=== PATIENT | male | born 1935 | race Caucasian/White ===

== ENCOUNTER 2017-07-26 23:10 | Inpatient (IN) | payer MEDICARE, OTHER ==
[~2017-07-26] VITALS: Ht 5703.2 cm; Wt 102.0 kg
[2017-07-26 23:45] LABS: BASOPHILS % (AUTO) 0.3 % (0-1); EOSINOPHILS # (AUTO) 0.1 X10'3 (0-0.9); EOSINOPHILS % (AUTO) 1.4 % (0-6); HEMATOCRIT 46.4 % (42.0-52.0); HEMOGLOBIN 15.5 g/dl (14.0-17.9); LYMPHOCYTES # (AUTO) 0.7 X10'3 (1.1-4.8); LYMPHOCYTES % (AUTO) 10.3 % (21-51); MEAN CORPUSCULAR HEMOGLOBIN 28.4 PG (27.0-31.0); MEAN CORPUSCULAR HGB CONC 33.5 % (33.0-36.5); MEAN PLATELET VOLUME 8.2 FL (7.4-10.4); MONOCYTES # (AUTO) 0.5 X10'3 (0-0.9); NEUTROPHILS # (AUTO) 5.6 X10'3 (1.8-7.7); PLATELET COUNT 174 X10'3 (140-440); RED BLOOD COUNT 5.46 X10'6 (4.70-6.10); RED CELL DISTRIBUTION WIDTH 17.8 % (11.5-14.5); WHITE BLOOD COUNT 6.9 X10'3 (4.5-11.0)
[2017-07-27 00:09] LABS: ALANINE AMINOTRANSFERASE 18 U/L (12-78); ALBUMIN 3.4 G/DL (3.4-5.0); ALBUMIN/GLOBULIN RATIO 0.9 (1.1-1.5); ALKALINE PHOSPHATASE 115 IU/L (46-116); ANION GAP 8 (8-16); ASPARTATE AMINO TRANSFERASE 23 U/L (10-37); BILIRUBIN,TOTAL 2.2 MG/DL (0.1-1.0); BLOOD UREA NITROGEN 30 MG/DL (7-18); BUN/CREATININE RATIO 24.4 (5.4-32.0); CALCIUM 8.7 MG/DL (8.5-10.1); CHLORIDE 108 MMOL/L (99-107); CREATININE 1.23 MG/DL (0.60-1.10); ETHANOL < 0.010 GM/DL (0.0-0.010); GLUCOSE 132 MG/DL (70-104); MAGNESIUM 2.2 MG/DL (1.5-2.4); POTASSIUM 4.3 MMOL/L (3.5-5.1); SODIUM 145 MMOL/L (135-145); TOTAL CARBON DIOXIDE 28.6 MMOL/L (24-32); eGFR 57 ML/MIN
[2017-07-27 00:10] LABS: INR 1.3 INR; PARTIAL THROMBOPLASTIN TIME 27 SECONDS (22-32)
[2017-07-27 00:19] LABS: ACETAMINOPHEN < 2.0 UG/ML (10-30)
[2017-07-27] MEDS ORDERED: acetaminophen 325mg tablet PO PRN (04:40)
[2017-07-27] MEDS ORDERED: ondansetron/PF 4mg/2ml inj IV PRN (04:40)
[2017-07-27] MEDS ORDERED: potassium Cl 40MEQ/NS 500ml 500 ML IV PRN ×2 (04:40)
[2017-07-27] MEDS ORDERED: potassium Cl 20 mEq SR tablet PO PRN ×2 (04:40)
[2017-07-27] MEDS ORDERED: mag hydrox/Alum hydrox/simeth 30ml oral suspension PO PRN (04:40)
[2017-07-27] MEDS ORDERED: magnesium hydroxide 30ml (MOM) UD suspension PO PRN (04:40)
[2017-07-27 05:16] LABS: CHOL/HDL RATIO 3.5 (0.00-4.99); CHOLESTEROL 121 MG/DL (0-200); HDL CHOLESTEROL 35 MG/DL (35-60); LDL CHOLESTEROL 74 MG/DL (50-100); TRIGLYCERIDES 57 MG/DL (20-135)
[2017-07-27 05:42] LABS: HEMOGLOBIN A1C 6.6 % (4.5-6.2)
[2017-07-27] MEDS: heparin, porcine 5000 units/ml vial SQ SCH ×2 (08:00→20:00)
[2017-07-27] MEDS ORDERED: furosemide 10 MG/1 ML 10ml inj IV SCH (08:00)
[2017-07-27] MEDS: carVEDilol 3.125mg tablet PO SCH ×2 (08:00→21:19)
[2017-07-27] MEDS ORDERED: lisinopril 10 MG tablet PO SCH (08:00)
[2017-07-27] MEDS: K and/or MAG REPLACEMENT MC SCH (08:00)
[2017-07-27] MEDS: aspirin 81mg tablet.DR PO SCH (08:00)
[2017-07-27] MEDS ORDERED: levoFLOXACIN-Levaquin 750MG/D5 150 ML IV SCH (08:10)
[2017-07-27] MEDS ORDERED: furosemide 10 MG/1 ML 10ml inj IV ONE (16:55)
[2017-07-27] MEDS ORDERED: lisinopril 5mg tablet PO SCH (19:42)
[2017-07-27 20:00] VITALS: BP 129/80
[2017-07-27] MEDS: lactobacillus rhamnosus 10,000 MMU CELLS/CAPSULE PO SCH (21:19)
[2017-07-27 22:03] LABS: CLARITY,URINE CLEAR (Clear); GLUCOSE, URINE NEGATIVE (Neg); KETONES,URINE NEGATIVE (Neg); LEUKOCYTE ESTERASE ,URINE NEGATIVE (Neg); NITRITES, URINE NEGATIVE (Neg); OCCULT BLOOD,URINE NEGATIVE (Neg); PH,URINE 5.5 (4.8-8.0); PROTEIN,URINE TRACE mg/dl (Neg)
[2017-07-27 22:04] LABS: URINE AMPHETAMINE SCREEN NEGATIVE (Neg); URINE BARBITUATE SCREEN NEGATIVE (Neg); URINE BENZODIAZEPINES SCREEN NEGATIVE (Neg); URINE CANNABINOID SCREEN NEGATIVE (Neg); URINE COCAINE SCREEN NEGATIVE (Neg); URINE METHADONE SCREEN NEGATIVE (Neg); URINE OPIATE SCREEN NEGATIVE (Neg); URINE PHENCYCLIDINE SCREEN NEGATIVE (Neg)
[2017-07-27 22:11] LABS: COLOR,URINE DARK YELLOW (Yellow); UA COLLECTION TYPE VOIDED
[2017-07-27] MEDS ORDERED: levoFLOXACIN-Levaquin 750MG/D5 150 ML IV ONE (22:15)
[2017-07-27 22:19] LABS: BACTERIA,URINE NONE SEEN /HPF (Neg); CAL OXALATE CRYSTALS 3+ /HPF (NEGATIVE); MUCUS STRANDS FEW /LPF (Neg); RBC,URINE NONE SEEN /HPF (0-2); SQUAMOUS EPITHELIAL CELL,UR FEW /LPF (FEW); WBC,URINE 0-4 /HPF (0-4)
[2017-07-28] VITALS: BP 125/68
[2017-07-28] MEDS ORDERED: morphine 4 MG/ML inj SYRINge IV PRN (05:05)
[2017-07-28] MEDS ORDERED: HYDROcodone/acetaminophen 5mg/325mg tablet PO PRN (05:05)
[2017-07-28] MEDS: HYDROcodone/acetaminophen 10/325mg tab PO PRN ×2 (05:34→19:23)
[2017-07-28 06:00] LABS: BASOPHILS % (AUTO) 0.5 % (0-1); EOSINOPHILS # (AUTO) 0.1 X10'3 (0-0.9); EOSINOPHILS % (AUTO) 1.5 % (0-6); LYMPHOCYTES # (AUTO) 0.6 X10'3 (1.1-4.8); LYMPHOCYTES % (AUTO) 10.2 % (21-51); MEAN CORPUSCULAR HEMOGLOBIN 28.6 PG (27.0-31.0); MEAN CORPUSCULAR HGB CONC 33.4 % (33.0-36.5); MEAN CORPUSCULAR VOLUME 85.6 FL (78-98); MEAN PLATELET VOLUME 8.6 FL (7.4-10.4); MONOCYTES # (AUTO) 0.6 X10'3 (0-0.9); MONOCYTES % (AUTO) 10.3 % (2-12); NEUTROPHILS # (AUTO) 4.4 X10'3 (1.8-7.7); NEUTROPHILS % (AUTO) 77.5 % (42-75); PLATELET COUNT 143 X10'3 (140-440); RED CELL DISTRIBUTION WIDTH 17.6 % (11.5-14.5); WHITE BLOOD COUNT 5.7 X10'3 (4.5-11.0)
[2017-07-28] MEDS: heparin, porcine 5000 units/ml vial SQ SCH ×2 (06:12→20:52)
[2017-07-28 06:16] LABS: INR 1.3 INR; PARTIAL THROMBOPLASTIN TIME 28 SECONDS (22-32); PROTHROMBIN TIME 13.5 SECONDS (9.0-12.0)
[2017-07-28 06:18] LABS: ALBUMIN 2.6 G/DL (3.4-5.0); ANION GAP 9 (8-16); BLOOD UREA NITROGEN 25 MG/DL (7-18); BUN/CREATININE RATIO 26.6 (5.4-32.0); CALCIUM 8.4 MG/DL (8.5-10.1); CHLORIDE 109 MMOL/L (99-107); CREATININE 0.94 MG/DL (0.60-1.10); GLUCOSE 103 MG/DL (70-104); POTASSIUM 4.4 MMOL/L (3.5-5.1); SODIUM 146 MMOL/L (135-145); TOTAL CARBON DIOXIDE 27.8 MMOL/L (24-32); eGFR 77 ML/MIN
[2017-07-28 07:00] VITALS: BP 98/50
[2017-07-28] MEDS: aspirin 81mg tablet.DR PO SCH (07:50)
[2017-07-28] MEDS: lactobacillus rhamnosus 10,000 MMU CELLS/CAPSULE PO SCH ×2 (07:50→20:47)
[2017-07-28] MEDS: carVEDilol 3.125mg tablet PO SCH ×2 (07:54→20:48)
[2017-07-28] MEDS: furosemide 40mg/4ml inj IV SCH (07:58)
[2017-07-28] MEDS: K and/or MAG REPLACEMENT MC SCH (08:00)
[2017-07-28 11:00] VITALS: BP 123/73
[2017-07-28] MEDS ORDERED: LIDOcaine 1%/PF (10mg/ml) 5ml vial ONE (14:21)
[2017-07-28 14:45] VITALS: BP 125/70
[2017-07-28 15:01] VITALS: BP 129/91
[2017-07-28 15:51] LABS: BFSOURCE RIGHT PLEURAL FLD; PLEURAL FLUID PH 7.405 (7.63-7.65)
[2017-07-28 16:17] LABS: BF RBC COUNT 196 /CU MM; BF WBC COUNT 223 /CU MM (0-1000); BFAPPEAR CLEAR; BFCOLOR YELLOW; BFVOLUME 62 ML; LYMPHOCYTES,BODY FLUID 41 %; MONOCYTES,BODY FLUID 45 %; NEUTROPHILS,BODY FLUID 14 %
[2017-07-28 16:21] LABS: GLUCOSE,BODY FLUID 157 MG/DL; LDH,BODY FLUID 114 U/L; TOTAL PROTEIN,BODY FLUID 2.9 G/DL
[2017-07-28 18:00] VITALS: BP 136/69
[2017-07-28] MEDS: LORazepam 2 mg/ml vial IV PRN (21:41)
[2017-07-29] VITALS: BP 114/69
[2017-07-29 05:22] LABS: BASOPHILS % (AUTO) 0.4 % (0-1); EOSINOPHILS # (AUTO) 0.1 X10'3 (0-0.9); EOSINOPHILS % (AUTO) 1.5 % (0-6); HEMATOCRIT 43.2 % (42.0-52.0); HEMOGLOBIN 14.2 g/dl (14.0-17.9); LYMPHOCYTES % (AUTO) 16.4 % (21-51); MEAN CORPUSCULAR HEMOGLOBIN 28.3 PG (27.0-31.0); MEAN CORPUSCULAR HGB CONC 32.8 % (33.0-36.5); MEAN CORPUSCULAR VOLUME 86.4 FL (78-98); MEAN PLATELET VOLUME 8.5 FL (7.4-10.4); MONOCYTES # (AUTO) 0.7 X10'3 (0-0.9); MONOCYTES % (AUTO) 11.7 % (2-12); NEUTROPHILS # (AUTO) 4.4 X10'3 (1.8-7.7); PLATELET COUNT 165 X10'3 (140-440); RED CELL DISTRIBUTION WIDTH 17.9 % (11.5-14.5); WHITE BLOOD COUNT 6.3 X10'3 (4.5-11.0)
[2017-07-29 06:02] LABS: ALBUMIN 2.8 G/DL (3.4-5.0); ANION GAP 9 (8-16); BLOOD UREA NITROGEN 26 MG/DL (7-18); BUN/CREATININE RATIO 26.5 (5.4-32.0); CALCIUM 8.8 MG/DL (8.5-10.1); CHLORIDE 106 MMOL/L (99-107); CREATININE 0.98 MG/DL (0.60-1.10); GLUCOSE 129 MG/DL (70-104); POTASSIUM 4.5 MMOL/L (3.5-5.1); SODIUM 142 MMOL/L (135-145); TOTAL CARBON DIOXIDE 27.5 MMOL/L (24-32); eGFR 74 ML/MIN
[2017-07-29] MEDS: K and/or MAG REPLACEMENT MC SCH (07:52)
[2017-07-29] MEDS: lisinopril 10 MG tablet PO SCH (07:53)
[2017-07-29 08:00] VITALS: BP 112/73
[2017-07-29] MEDS ORDERED: levoFLOXACIN-Levaquin 750MG/D5 150 ML IV SCH (08:00)
[2017-07-29] MEDS: lactobacillus rhamnosus 10,000 MMU CELLS/CAPSULE PO SCH ×2 (08:03→19:49)
[2017-07-29] MEDS: carVEDilol 3.125mg tablet PO SCH ×2 (08:03→19:49)
[2017-07-29] MEDS: aspirin 81mg tablet.DR PO SCH (08:03)
[2017-07-29] MEDS: heparin, porcine 5000 units/ml vial SQ SCH ×2 (08:04→19:50)
[2017-07-29] MEDS: furosemide 40mg/4ml inj IV SCH (08:04)
[2017-07-29] MEDS: LORazepam 2 mg/ml vial IV PRN (10:03)
[2017-07-29 11:00] VITALS: BP 120/73
[2017-07-29 16:00] LABS: HIV ANTIBODY 1&2 RAPID NON-REACTIVE (Neg)
[2017-07-29 20:00] VITALS: BP 125/74
[2017-07-29] MEDS ORDERED: haloperidol 1mg tablet PO PRN (23:25)
[2017-07-29] MEDS ORDERED: haloperidol lactate 5mg/ml inj IM PRN (23:25)
[2017-07-30] VITALS: BP 125/65
[2017-07-30] MEDS: HYDROcodone/acetaminophen 10/325mg tab PO PRN (01:24)
[2017-07-30 07:07] VITALS: BP 113/58
[2017-07-30] MEDS: lactobacillus rhamnosus 10,000 MMU CELLS/CAPSULE PO SCH ×2 (08:00→20:54)
[2017-07-30] MEDS: lisinopril 10 MG tablet PO SCH (08:00)
[2017-07-30] MEDS: carVEDilol 3.125mg tablet PO SCH ×2 (08:00→20:54)
[2017-07-30] MEDS: heparin, porcine 5000 units/ml vial SQ SCH ×2 (08:00→20:54)
[2017-07-30] MEDS: K and/or MAG REPLACEMENT MC SCH (08:00)
[2017-07-30] MEDS: aspirin 81mg tablet.DR PO SCH (08:00)
[2017-07-30] MEDS: furosemide 40mg/4ml inj IV SCH (08:00)
[2017-07-30 08:17] LABS: BASOPHILS % (AUTO) 0.3 % (0-1); EOSINOPHILS # (AUTO) 0.1 X10'3 (0-0.9); EOSINOPHILS % (AUTO) 1.7 % (0-6); HEMATOCRIT 43.2 % (42.0-52.0); HEMOGLOBIN 14.1 g/dl (14.0-17.9); LYMPHOCYTES # (AUTO) 1.1 X10'3 (1.1-4.8); LYMPHOCYTES % (AUTO) 19.3 % (21-51); MEAN CORPUSCULAR HEMOGLOBIN 28.3 PG (27.0-31.0); MEAN CORPUSCULAR HGB CONC 32.6 % (33.0-36.5); MEAN CORPUSCULAR VOLUME 86.9 FL (78-98); MEAN PLATELET VOLUME 8.5 FL (7.4-10.4); MONOCYTES # (AUTO) 0.6 X10'3 (0-0.9); MONOCYTES % (AUTO) 11.2 % (2-12); NEUTROPHILS # (AUTO) 3.8 X10'3 (1.8-7.7); NEUTROPHILS % (AUTO) 67.5 % (42-75); PLATELET COUNT 151 X10'3 (140-440); RED BLOOD COUNT 4.96 X10'6 (4.70-6.10); RED CELL DISTRIBUTION WIDTH 17.5 % (11.5-14.5); WHITE BLOOD COUNT 5.6 X10'3 (4.5-11.0)
[2017-07-30 08:26] LABS: ALBUMIN 2.9 G/DL (3.4-5.0); ANION GAP 6 (8-16); BLOOD UREA NITROGEN 27 MG/DL (7-18); CALCIUM 8.7 MG/DL (8.5-10.1); CHLORIDE 104 MMOL/L (99-107); GLUCOSE 137 MG/DL (70-104); POTASSIUM 4.4 MMOL/L (3.5-5.1); SODIUM 141 MMOL/L (135-145); eGFR 72 ML/MIN
[2017-07-30 11:56] VITALS: BP 116/66
[2017-07-30 18:50] VITALS: BP 140/73
[2017-07-31 07:28] LABS: BASOPHILS % (AUTO) 0.4 % (0-1); EOSINOPHILS # (AUTO) 0.1 X10'3 (0-0.9); EOSINOPHILS % (AUTO) 1.8 % (0-6); HEMATOCRIT 42.3 % (42.0-52.0); HEMOGLOBIN 13.8 g/dl (14.0-17.9); LYMPHOCYTES % (AUTO) 18.3 % (21-51); MEAN CORPUSCULAR HEMOGLOBIN 28.4 PG (27.0-31.0); MEAN CORPUSCULAR HGB CONC 32.7 % (33.0-36.5); MEAN CORPUSCULAR VOLUME 86.8 FL (78-98); MEAN PLATELET VOLUME 8.3 FL (7.4-10.4); MONOCYTES # (AUTO) 0.5 X10'3 (0-0.9); MONOCYTES % (AUTO) 10.4 % (2-12); NEUTROPHILS # (AUTO) 3.6 X10'3 (1.8-7.7); NEUTROPHILS % (AUTO) 69.1 % (42-75); PLATELET COUNT 153 X10'3 (140-440); RED BLOOD COUNT 4.87 X10'6 (4.70-6.10); RED CELL DISTRIBUTION WIDTH 17.6 % (11.5-14.5); WHITE BLOOD COUNT 5.2 X10'3 (4.5-11.0)
[2017-07-31 07:39] LABS: ALBUMIN 2.8 G/DL (3.4-5.0); ANION GAP 4 (8-16); BLOOD UREA NITROGEN 22 MG/DL (7-18); BUN/CREATININE RATIO 23.9 (5.4-32.0); CALCIUM 8.8 MG/DL (8.5-10.1); CHLORIDE 105 MMOL/L (99-107); CREATININE 0.92 MG/DL (0.60-1.10); GLUCOSE 122 MG/DL (70-104); POTASSIUM 4.2 MMOL/L (3.5-5.1); SODIUM 142 MMOL/L (135-145); TOTAL CARBON DIOXIDE 33.1 MMOL/L (24-32); eGFR 79 ML/MIN
[2017-07-31 07:43] VITALS: BP 122/52
[2017-07-31] MEDS: carVEDilol 3.125mg tablet PO SCH (07:56)
[2017-07-31] MEDS: lactobacillus rhamnosus 10,000 MMU CELLS/CAPSULE PO SCH (07:56)
[2017-07-31] MEDS: aspirin 81mg tablet.DR PO SCH (07:56)
[2017-07-31] MEDS: lisinopril 10 MG tablet PO SCH (07:57)
[2017-07-31] MEDS: K and/or MAG REPLACEMENT MC SCH (08:00)
[2017-07-31] MEDS: heparin, porcine 5000 units/ml vial SQ SCH (08:00)
[2017-07-31] MEDS ORDERED: furosemide 40mg tablet PO SCH (09:15)
[2017-07-31 11:00] VITALS: BP 116/66
[2017-07-31] MEDS ORDERED: levoFLOXACIN 750MG TABLET PO SCH (11:00)
[2017-07-31] MEDS ORDERED: COR3.125T PO (12:23)
[2017-07-31] MEDS ORDERED: ASPI-1071 PO (12:23)
[2017-07-31] MEDS ORDERED: FURO40TA4 PO (12:23)
[2017-07-31] MEDS ORDERED: LISI10TA4 PO (12:23)
[2017-07-31] MEDS ORDERED: LACT1CAP26 PO (12:23)
[2017-07-31] MEDS ORDERED: HALO1TAB PO (12:23)
[2017-07-31] MEDS ORDERED: LEVO750T46 PO (12:23)
[2017-08-01 09:17] LABS: RPR Non Reactive (Non Reactive)
== END 2017-07-31 15:39 | disposition home or self-care (01) | DRG 70 ==
LOC: ER 23:11 → ED HOLD 07-27 04:36 → EDBEDREQ 07-27 17:56 → SUR 3N 07-27 19:40
PROVIDERS: ADMIT Family Medicine; ATTEND Family Medicine
PROC: 0W993ZZ Drainage of Right Pleural Cavity, Percutaneous Approach (ICD-10-PCS; principal; 2017-07-28)
DX: G93.40 Encephalopathy, unspecified (principal); J18.1 Lobar pneumonia, unspecified organism; J90 Pleural effusion, not elsewhere classified; E11.22 Type 2 diabetes mellitus with diabetic chronic kidney disease; E11.65 Type 2 diabetes mellitus with hyperglycemia; R17 Unspecified jaundice; I08.3 Combined rheumatic disorders of mitral, aortic and tricuspid valves; I50.20 Unspecified systolic (congestive) heart failure; F03.90 Unspecified dementia, unspecified severity, without behavioral disturbance, psychotic disturbance, mood disturbance, and anxiety; N18.3 Chronic kidney disease, stage 3 (moderate); I25.5 Ischemic cardiomyopathy; R09.02 Hypoxemia; F40.240 Claustrophobia; Z53.20 Procedure and treatment not carried out because of patient's decision for unspecified reasons; Z79.82 Long term (current) use of aspirin; Z79.899 Other long term (current) drug therapy; Z87.891 Personal history of nicotine dependence
CPT/HCPCS: 32555; 36415; 70450; 71045; 71250; 80048; 80053; 80061; 80305; 80320; 80329; 81001; 82140; 82533; 82607; 82945; 83036; 83605; 83615; 83735; 83880; 83986; 84157; 84443; 84484; 85025; 85610; 85730; 86592; 86703; 87040; 87070; 87075; 89051; 93005; 93306; 97110; 97116; 97162; 97530; A6212; J1644; J1940; J1956; J2001; J2060; J7030